=== PATIENT | female | born 1990 | race Caucasian/White ===

== ENCOUNTER 2020-05-01 00:05 | Emergency (ER) | payer BC ==
[~2020-05-01] VITALS: Ht 157.5 cm; Wt 59.0 kg
[2020-05-01] MEDS ORDERED: LITHIUM PO (00:18)
[2020-05-01] MEDS ORDERED: ALPRAZOLAM XR3 MG PO (00:19)
[2020-05-01] MEDS ORDERED: ALPRAZOLAM1 M1 PO (00:19)
[2020-05-01] MEDS ORDERED: SEROQUEL XR150 MG PO (00:20)
[2020-05-01] MEDS ORDERED: TRINTELLIX PO (00:20)
[2020-05-01 00:56] LABS: URINE BILIRUBIN NEGATIVE (Negative); URINE BLOOD NEGATIVE (Negative); URINE CLARITY CLEAR; URINE COLOR YELLOW; URINE GLUCOSE-RANDOM* NEGATIVE (Negative); URINE KETONES NEGATIVE (Negative); URINE LEUKOCYTES-REFLEX NEGATIVE (Negative); URINE NITRITE-REFLEX NEGATIVE (Negative); URINE PROTEIN (DIPSTICK) NEGATIVE (Negative); URINE SPECIFIC GRAVITY <= 1.005 (1.005-1.035); URINE UROBILINOGEN 0.2 E.U./dl (0.2-1.0)
[2020-05-01 00:56] LABS: ABSOLUTE NEUTROPHILS 3.5 thou/uL (1.4-8.2); BASOPHILS 1.8 % (0.0-2.0); EOSINOPHILS 1.7 % (0.0-3.0); HEMATOCRIT 46.3 % (37.0-47.0); HEMOGLOBIN 15.8 gm/dL (12.0-15.0); LYMPHOCYTES 30.9 % (24.0-44.0); MCH 31.9 pg (26.0-34.0); MCHC 34.2 g/dL (28.0-37.0); MCV 93.3 fL (80.0-100.0); MONOCYTES 5.8 % (1.0-8.0); PLATELET COUNT 252 thou/uL (150-400); POLYS 59.8 % (36.0-66.0); RBC 4.96 mil/uL (4.20-5.00); RDW 12.8 % (10.5-14.5); WBC 5.9 thou/uL (4.0-11.0)
[2020-05-01 01:05] LABS: ANION GAP 8 mmol/L (7-16); BUN 13 mg/dL (7-18); CALCIUM 8.8 mg/dL (8.5-10.1); CHLORIDE 107 mmol/L (98-107); CO2 25 mmol/L (21-32); CREATININE 0.7 mg/dL (0.6-1.0); GLUCOSE 112 mg/dL (74-106); POTASSIUM 3.7 mmol/L (3.5-5.1); SODIUM 140 mmol/L (136-145)
[2020-05-01 01:07] LABS: AMP/METHAMP Negative (Negative); BARBITURATES Negative (Negative); BENZODIAZEPINES Negative (Negative); COCAINE Negative (Negative); METHADONE Negative (Negative); OPIATES Negative (Negative); PCP Negative (Negative)
[2020-05-01 01:12] LABS: ALBUMIN 3.9 g/dL (3.4-5.0); SALICYLATE < 2.8 mg/dL (2.8-20.0); SGOT 26 U/L (15-37); SGPT 40 U/L (14-59); TOTAL BILIRUBIN 0.2 mg/dL (0.2-1.0); TOTAL PROTEIN 7.3 g/dL (6.4-8.2)
--- NOTE | 2020-05-01 07:29 | EKG ---
[address] [place] [address] ELECTROCARDIOGRAM REPORT Name: JOB ALMANZA Room #: REG Marilyn#: [id number] Admission: 05/01/20 Attend Phys: Discharge: Date of : 88 Report #: [id number] [facility] ED Test Date: 2020-05-01 Test Time: 00:36:27 Pat Name: JOB ALMANZA Department: Room: Gender: F Compliance Tester: opal : 1990 Requested By: Matthew Floyd Order Number: [id number] MD: Petar Solis Measurements Intervals [place] Rate: 80 P: 42 MI: 149 QRS: 35 QRSD: 93 T: 7 QT: 415 QTc: 479 Interpretive Statements Sinus rhythm Borderline prolonged QT interval Baseline wander in lead(s) V2 No previous ECG available for comparison Electronically Signed On 05-01-2020 7:29:49 [employer] by Petar Solis [email or web address] <ELECTRONICALLY SIGNED> By: Petar Solis MD, [facility] 05/01/20 0729 0036 0036 Petar Solis MD, FACC /EPI
[2020-05-01 16:26] VITALS: BP 110/82
== END 2020-05-01 16:16 | disposition short-term general hospital (02) ==
LOC: ER 00:05
PROVIDERS: Emergency Medicine
DX: R45.851 Suicidal ideations (principal); F10.10 Alcohol abuse, uncomplicated; Z79.899 Other long term (current) drug therapy; Z20.828 Contact with and (suspected) exposure to other viral communicable diseases; Y90.8 Blood alcohol level of 240 mg/100 ml or more